=== PATIENT | female | born 1980 ===

== ENCOUNTER 2021-11-17 15:18 | Observation (INO) ==
[2021-11-17] MEDS ORDERED: HYDROmorphone 2 MG/1 ML VIAL IV STA (19:20)
[2021-11-17] MEDS ORDERED: ONDANSETRON 4 MG/2 ML VIAL IV ONE (19:20)
[2021-11-17] MEDS ORDERED: hydrALAZINE 20 MG/1 ML VIAL IV STA (19:20)
[2021-11-17] MEDS ORDERED: DEXTROSE 50% 25 GM/50 ML VIAL IV PRN (20:07)
[2021-11-17] MEDS ORDERED: ALBUTEROL/IPRATROPIUM 3 ML NEB RESP TX PRN (20:07)
[2021-11-17] MEDS ORDERED: GLUCAGON 1 MG VIAL IM PRN ×2 (20:07)
[2021-11-17] MEDS ORDERED: hydrALAZINE 20 MG/1 ML VIAL IV PRN (20:12)
[2021-11-17] MEDS ORDERED: IBUPROFEN 400 MG TABLET PO PRN (20:12)
[2021-11-17] MEDS ORDERED: DEXTROSE 10% 25 GM/250 ML BAG IV PRN (20:19)
[2021-11-17] MEDS ORDERED: glyBURIDE/METFORMIN 5-500 MG TABLET PO SCH (21:00)
[2021-11-17] MEDS: HEPARIN 5,000 UNIT/1 ML VIAL SUBCUT SCH (21:05)
[2021-11-17] MEDS: INSULIN LISPRO 100 UNIT/ML SUBCUT SCH (21:05)
[2021-11-18 03:07] LABS: Basophils # 0.1 10*3/uL (0.0-0.2); Basophils % 0.6 % (0.0-0.8); Eosinophils # 0.1 10*3/uL (0.0-0.87); Eosinophils % 0.8 % (0.00-10.9); Hematocrit 42.4 VOL% (35.7-47.0); Immature Granulocytes % 0.6 %; Immature Granulocytes Absolute 0.08 #; Lymphocytes # 1.2 10*3/uL (1.4-4.0); Lymphocytes % 8.8 % (21.3-54.2); Mean Corpuscular Volume 89.1 FL (87-102); Mean Platelet Volume 12.1 FL (9.6-12.0); Neutrophils % 83.2 % (38.7-73.9); Platelet Count 100 T/CUMM (130-400); Red Blood Count 4.76 MC/CUMM (3.8-5.5); Red Cell Distribution Width 13.5 % (9.3-17.3); White Blood Count 13.3 T/CUMM (4-12)
[2021-11-18 03:30] LABS: Calcium 7.7 MG/DL (8.5-10.1); Potassium 4.6 MMOL/L (3.5-5.1); Thyroid Stimulating Hormone 4.51 uIU/ml (0.358-3.74)
[2021-11-18 03:34] LABS: Albumin 1.9 G/DL (3.4-5.0); Bilirubin,Total 0.4 MG/DL (0.20-1.00); Calcium 7.8 MG/DL (8.5-10.1); Osmolality,Calculated 292.3 MOS/KG (273-304); Potassium 4.6 MMOL/L (3.5-5.1); Total Protein 5.9 G/DL (6.4-8.2)
[2021-11-18] MEDS: HEPARIN 5,000 UNIT/1 ML VIAL SUBCUT SCH (05:45)
[2021-11-18] MEDS: INSULIN LISPRO 100 UNIT/ML SUBCUT SCH (07:50)
[2021-11-18] MEDS ORDERED: PANTOPRAZOLE 40 MG TABLET PO SCH (09:00)
[2021-11-18] MEDS ORDERED: CETIRIZINE 10 MG TABLET PO SCH (09:00)
[2021-11-18] MEDS ORDERED: LOSARTAN 50 MG TABLET PO SCH (09:00)
[2021-11-18] MEDS ORDERED: INSULIN NPH/REGULAR 70/30 100 UNIT/ML SUBCUT SCH (09:00)
[2021-11-18] MEDS ORDERED: METOPROLOL SUCCINATE XL 100 MG TABLET PO SCH (09:00)
[2021-11-18] MEDS ORDERED: amLODIPine 5 MG TABLET PO SCH (09:00)
[2021-11-18] MEDS ORDERED: MONTELUKAST 10 MG TABLET PO SCH (09:00)
[2021-11-18 13:12] VITALS: BP 152/90
[2021-11-18] MEDS ORDERED: metFORMIN 500 MG TABLET PO SCH (21:00)
[2021-11-18] MEDS ORDERED: glyBURIDE 5 MG TABLET PO SCH (21:00)
[2021-11-19] MEDS ORDERED: FUROSEMIDE 20 MG TABLET PO SCH (09:00)
== END 2021-11-18 13:08 | disposition home or self-care (01) ==
LOC: EDBD → EDUNIT# → N.ED 15:18 → N.EDINP 15:18
PROVIDERS: ADMIT Internal Medicine; ATTEND Internal Medicine

== ENCOUNTER 2021-12-20 15:18 | Inpatient (IN) ==
[2021-12-20] MEDS ORDERED: MORPHINE 4 MG/1 ML VIAL IV STA (16:32)
[2021-12-20] MEDS ORDERED: SODIUM CHLORIDE 0.9% 500 ML IV STA (16:32)
[2021-12-20] MEDS ORDERED: ONDANSETRON 4 MG/2 ML VIAL IV STA (16:32)
[2021-12-20] MEDS ORDERED: hydrALAZINE 20 MG/1 ML VIAL IV PRN (16:51)
[2021-12-20 17:18] LABS: Basophils # 0.1 10*3/uL (0.0-0.2); Basophils % 0.9 % (0.0-0.8); Eosinophils # 1.3 10*3/uL (0.0-0.87); Eosinophils % 8.5 % (0.00-10.9); Hematocrit 41.2 VOL% (35.7-47.0); Hemoglobin 13.2 GM/DL (12.0-16.0); Immature Granulocytes % 0.3 %; Immature Granulocytes Absolute 0.04 #; Lymphocytes # 1.4 10*3/uL (1.4-4.0); Lymphocytes % 9.1 % (21.3-54.2); Mean Corpuscular Volume 90.2 FL (87-102); Mean Platelet Volume 10.6 FL (9.6-12.0); Neutrophils % 75.2 % (38.7-73.9); Platelet Count 136 T/CUMM (130-400); Red Blood Count 4.57 MC/CUMM (3.8-5.5); Red Cell Distribution Width 13.3 % (9.3-17.3); White Blood Count 14.9 T/CUMM (4-12)
[2021-12-20] MEDS ORDERED: GLUCAGON 1 MG VIAL IM PRN (17:21)
[2021-12-20] MEDS ORDERED: DOCUSATE SODIUM 100 MG CAPSULE PO PRN (17:21)
[2021-12-20] MEDS ORDERED: DEXTROSE 10% 250 ML BAG IV PRN (17:32)
[2021-12-20 17:33] LABS: Calcium 7.7 MG/DL (8.5-10.1); Osmolality,Calculated 288.1 MOS/KG (273-304); Potassium 3.8 MMOL/L (3.5-5.1)
[2021-12-20] MEDS ORDERED: MAGNESIUM SULF RIDER 2 GM/50 ML PREMIX IV ONE (17:38)
[2021-12-20] MEDS ORDERED: traMADol 50 MG TABLET PO PRN (17:44)
[2021-12-20] MEDS ORDERED: VANCOMYCIN INJ 1,000 MG in SODIUM CHLORIDE 0.9% 250 ML IV SCH (18:00)
[2021-12-20 18:12] LABS: Partial Thromboplastin Time 27.4 SECS (23.8-32.1)
[2021-12-20] MEDS ORDERED: ALBUTEROL/IPRATROPIUM 3 ML NEB RESP TX PRN (19:00)
[2021-12-20] MEDS ORDERED: INFLUENZA VIRUS VACCINE 0.5 ML SYRINGE IM ONE (19:06)
[2021-12-20 19:39] LABS: Hyaline Casts,Urine 3 /LPF (0-3); RBC,Urine 1 /HPF (0-4); Squamous Epithelial Cell,Urine Occasional /HPF (0-10)
[2021-12-20 19:43] LABS: Urine Appearance Clear (Clear); Urine Color Light Yellow (Yellow)
[2021-12-20 19:44] LABS: Urine Specific Gravity 1.025 (1.001-1.035); Urine pH 6.5 (4.5-8.0)
[2021-12-20 19:45] LABS: Bilirubin,Urine Negative (Negative); Blood, Urine Negative (Negative); Glucose,Urine (UA) 250 mg/dL (Negative); Ketones,Urine Negative (Negative); Nitrite,Urine Negative (Negative); Protein,Urine >=300 mg/dL (Negative)
[2021-12-20 19:46] LABS: Urine Urobilinogen < 2.0 eU/dL (<2.0)
[2021-12-20] MEDS: MONTELUKAST 10 MG TABLET PO SCH (20:51)
[2021-12-20] MEDS: INSULIN LISPRO 100 UNIT/ML SUBCUT SCH (20:51)
[2021-12-20] MEDS: hydrALAZINE 25 MG TABLET PO SCH (20:51)
[2021-12-20] MEDS ORDERED: FUROSEMIDE 40 MG TABLET PO SCH (21:00)
[2021-12-20] MEDS ORDERED: VANCOMYCIN INJ 2,500 MG in SODIUM CHLORIDE 0.9% 500 ML IV ONE (21:00)
[2021-12-21 05:35] LABS: Basophils # 0.2 10*3/uL (0.0-0.2); Basophils % 1.1 % (0.0-0.8); Eosinophils # 1.8 10*3/uL (0.0-0.87); Eosinophils % 12.9 % (0.00-10.9); Hematocrit 36.9 VOL% (35.7-47.0); Hemoglobin 11.9 GM/DL (12.0-16.0); Immature Granulocytes % 0.4 %; Immature Granulocytes Absolute 0.06 #; Lymphocytes # 1.8 10*3/uL (1.4-4.0); Lymphocytes % 12.5 % (21.3-54.2); Mean Corpuscular HGB Conc 32.2 GM/DL (32-36); Monocytes % 6.2 % (1.7-12.7); Neutrophils % 66.9 % (38.7-73.9); Platelet Count 141 T/CUMM (130-400); Red Blood Count 4.01 MC/CUMM (3.8-5.5); Red Cell Distribution Width 13.7 % (9.3-17.3); White Blood Count 14.1 T/CUMM (4-12)
[2021-12-21 05:48] LABS: Albumin 1.4 G/DL (3.4-5.0); Bilirubin,Total 0.6 MG/DL (0.20-1.00); Calcium 7.8 MG/DL (8.5-10.1); Osmolality,Calculated 284.5 MOS/KG (273-304); Potassium 3.6 MMOL/L (3.5-5.1); Total Protein 5.8 G/DL (6.4-8.2)
[2021-12-21] MEDS: LEVOTHYROXINE 50 MCG TABLET PO SCH (06:16)
[2021-12-21 06:38] LABS: Eosinophils 15 % (0-10); Lymphocytes 9 % (20-55); Segmented Neutrophils 72 % (50-85); Total Cells Counted 100
[2021-12-21 06:39] LABS: Microcytosis Slight; Platelet Estimate Adequate
[2021-12-21] MEDS ORDERED: BUPIVACAINE MPF 0.25% 30 ML VIAL ONE (09:05)
[2021-12-21] MEDS ORDERED: LIDOCAINE 1%/EPI INJ 20 ML VIAL ONE (09:05)
[2021-12-21] MEDS: LOSARTAN 25 MG TABLET PO SCH (09:16)
[2021-12-21] MEDS: hydrALAZINE 25 MG TABLET PO SCH ×3 (09:16→21:40)
[2021-12-21] MEDS: amLODIPine 5 MG TABLET PO SCH (09:16)
[2021-12-21] MEDS: METOPROLOL SUCCINATE XL 100 MG TABLET PO SCH (09:16)
[2021-12-21] MEDS: INSULIN LISPRO 100 UNIT/ML SUBCUT SCH ×4 (09:17→21:40)
[2021-12-21] MEDS: SODIUM CHLOR 0.9% KCL 20 MEQ 20 MEQ/1,000 ML BAG IV SCH ×3 (09:17→21:45)
[2021-12-21] MEDS ORDERED: DEXMEDETOMIDINE 200 MCG/2 ML VIAL ONE (10:43)
[2021-12-21] MEDS ORDERED: MIDAZOLAM 2 MG/2 ML VIAL ONE ×2 (10:43→10:46)
[2021-12-21] MEDS ORDERED: ETOMIDATE 40 MG/20 ML VIAL IV ONE (10:43)
[2021-12-21] MEDS ORDERED: LIDOCAINE 2% 5 ML VIAL ONE (10:43)
[2021-12-21] MEDS ORDERED: ACETAMINOPHEN INJ 1,000 MG/100 ML VIAL IV ONE (10:47)
[2021-12-21] MEDS ORDERED: KETOROLAC 30 MG/1 ML VIAL ONE (10:47)
[2021-12-21] MEDS ORDERED: DEXAMETHASONE 4 MG/1 ML VIAL ONE (10:48)
[2021-12-21] MEDS ORDERED: ONDANSETRON 4 MG/2 ML VIAL ONE (10:48)
[2021-12-21] MEDS ORDERED: KETAMINE 500 MG/10 ML VIAL ONE (11:14)
[2021-12-21] MEDS ORDERED: propofoL 200 MG/20 ML VIAL IV ONE (11:19)
[2021-12-21] MEDS ORDERED: DEXTROSE 10% 250 ML BAG IV PRN (11:28)
[2021-12-21] MEDS: CETIRIZINE 10 MG TABLET PO SCH (14:03)
[2021-12-21] MEDS: MULTIVITAMIN (CENTRUM) TABLET PO SCH (14:03)
[2021-12-21] MEDS ORDERED: INSULIN NPH/REGULAR 70/30 100 UNIT/ML SUBCUT SCH (17:00)
[2021-12-21] MEDS: MONTELUKAST 10 MG TABLET PO SCH (21:40)
[2021-12-22] MEDS: LEVOTHYROXINE 50 MCG TABLET PO SCH (06:04)
[2021-12-22 06:25] LABS: Basophils # 0.1 10*3/uL (0.0-0.2); Basophils % 0.4 % (0.0-0.8); Eosinophils % 0.1 % (0.00-10.9); Hematocrit 35.8 VOL% (35.7-47.0); Hemoglobin 11.5 GM/DL (12.0-16.0); Immature Granulocytes % 0.7 %; Lymphocytes # 1.2 10*3/uL (1.4-4.0); Lymphocytes % 8.4 % (21.3-54.2); Mean Corpuscular HGB Conc 32.1 GM/DL (32-36); Mean Corpuscular Volume 91.8 FL (87-102); Mean Platelet Volume 10.5 FL (9.6-12.0); Monocytes % 6.8 % (1.7-12.7); Neutrophils % 83.6 % (38.7-73.9); Platelet Count 161 T/CUMM (130-400); Red Cell Distribution Width 13.3 % (9.3-17.3); White Blood Count 14.1 T/CUMM (4-12)
[2021-12-22 06:44] LABS: Alanine Aminotransferase 11 U/L (13-56); Albumin 1.3 G/DL (3.4-5.0); Alkaline Phosphatase 122 U/L (45-117); Aspartate Amino Transferase 14 U/L (0-37); Bilirubin,Total < 0.39 MG/DL (0.20-1.00); Blood Urea Nitrogen 30 MG/DL (7-18); Calcium 7.6 MG/DL (8.5-10.1); Carbon Dioxide 20 MMOL/L (21-32); Estimated Glom Filtration Rate 32 ML/MIN; Glucose 157 MG/DL (74-106); Osmolality,Calculated 281.8 MOS/KG (273-304); Potassium 4.8 MMOL/L (3.5-5.1); Sodium 137 MMOL/L (136-145)
[2021-12-22] MEDS: INSULIN LISPRO 100 UNIT/ML SUBCUT SCH ×4 (07:44→21:22)
[2021-12-22] MEDS ORDERED: ERGOCALCIFEROL 50,000 UNIT CAPSULE PO SCH (09:00)
[2021-12-22] MEDS ORDERED: VANCOMYCIN INJ 2,500 MG in SODIUM CHLORIDE 0.9% 500 ML IV PRN (09:00)
[2021-12-22] MEDS: CETIRIZINE 10 MG TABLET PO SCH (09:55)
[2021-12-22] MEDS: amLODIPine 5 MG TABLET PO SCH (09:55)
[2021-12-22] MEDS: hydrALAZINE 25 MG TABLET PO SCH ×3 (09:55→21:22)
[2021-12-22] MEDS: MULTIVITAMIN (CENTRUM) TABLET PO SCH (09:55)
[2021-12-22] MEDS: METOPROLOL SUCCINATE XL 100 MG TABLET PO SCH (09:55)
[2021-12-22] MEDS: LOSARTAN 25 MG TABLET PO SCH (09:55)
[2021-12-22] MEDS: SODIUM HYPOCHLORITE 0.25% IRRIG 473 ML BOTTLE TOP SCH (12:48)
[2021-12-22] MEDS: cefTRIAXone 2,000 MG in SODIUM CHLORIDE 0.9% 100 ML IV SCH (13:10)
[2021-12-22] MEDS: SODIUM CHLOR 0.9% KCL 20 MEQ 20 MEQ/1,000 ML BAG IV SCH (13:21)
[2021-12-22] MEDS: INSULIN GLARGINE 100 UNIT/ML SUBCUT SCH (21:22)
[2021-12-22] MEDS: MONTELUKAST 10 MG TABLET PO SCH (21:22)
[2021-12-23] MEDS: LEVOTHYROXINE 50 MCG TABLET PO SCH (05:56)
[2021-12-23 08:03] LABS: Basophils # 0.1 10*3/uL (0.0-0.2); Basophils % 1.1 % (0.0-0.8); Eosinophils % 8.9 % (0.00-10.9); Hematocrit 34.2 VOL% (35.7-47.0); Hemoglobin 10.7 GM/DL (12.0-16.0); Immature Granulocytes % 0.5 %; Immature Granulocytes Absolute 0.05 #; Lymphocytes # 2.3 10*3/uL (1.4-4.0); Lymphocytes % 20.8 % (21.3-54.2); Mean Corpuscular HGB Conc 31.3 GM/DL (32-36); Mean Corpuscular Volume 93.7 FL (87-102); Mean Platelet Volume 10.2 FL (9.6-12.0); Monocytes % 7.6 % (1.7-12.7); Neutrophils % 61.1 % (38.7-73.9); Platelet Count 160 T/CUMM (130-400); Red Blood Count 3.65 MC/CUMM (3.8-5.5); Red Cell Distribution Width 13.3 % (9.3-17.3); White Blood Count 10.9 T/CUMM (4-12)
[2021-12-23 08:22] LABS: Calcium 7.4 MG/DL (8.5-10.1); Osmolality,Calculated 290.4 MOS/KG (273-304); Potassium 4.1 MMOL/L (3.5-5.1)
[2021-12-23] MEDS: CETIRIZINE 10 MG TABLET PO SCH (09:53)
[2021-12-23] MEDS: LOSARTAN 25 MG TABLET PO SCH (09:53)
[2021-12-23] MEDS: METOPROLOL SUCCINATE XL 100 MG TABLET PO SCH (09:53)
[2021-12-23] MEDS: amLODIPine 5 MG TABLET PO SCH (09:53)
[2021-12-23] MEDS: MULTIVITAMIN (CENTRUM) TABLET PO SCH (09:53)
[2021-12-23] MEDS: hydrALAZINE 25 MG TABLET PO SCH ×3 (09:53→21:39)
[2021-12-23] MEDS: PANTOPRAZOLE 40 MG TABLET PO SCH (09:53)
[2021-12-23] MEDS: cefTRIAXone 2,000 MG in SODIUM CHLORIDE 0.9% 100 ML IV SCH (09:54)
[2021-12-23] MEDS: INSULIN LISPRO 100 UNIT/ML SUBCUT SCH ×4 (09:54→21:53)
[2021-12-23] MEDS: INSULIN GLARGINE 100 UNIT/ML SUBCUT SCH ×3 (09:54→21:54)
[2021-12-23] MEDS: SODIUM HYPOCHLORITE 0.25% IRRIG 473 ML BOTTLE TOP SCH (09:54)
[2021-12-23] MEDS: MONTELUKAST 10 MG TABLET PO SCH (21:39)
[2021-12-24] MEDS: LEVOTHYROXINE 50 MCG TABLET PO SCH (05:30)
[2021-12-24 06:18] LABS: Basophils # 0.1 10*3/uL (0.0-0.2); Basophils % 1.2 % (0.0-0.8); Eosinophils # 1.9 10*3/uL (0.0-0.87); Eosinophils % 15.6 % (0.00-10.9); Hematocrit 33.6 VOL% (35.7-47.0); Hemoglobin 10.2 GM/DL (12.0-16.0); Immature Granulocytes % 0.4 %; Immature Granulocytes Absolute 0.05 #; Lymphocytes # 1.9 10*3/uL (1.4-4.0); Lymphocytes % 15.5 % (21.3-54.2); Mean Corpuscular HGB Conc 30.4 GM/DL (32-36); Mean Corpuscular Volume 96.3 FL (87-102); Mean Platelet Volume 10.3 FL (9.6-12.0); Monocytes % 8.9 % (1.7-12.7); Neutrophils % 58.4 % (38.7-73.9); Platelet Count 179 T/CUMM (130-400); Red Blood Count 3.49 MC/CUMM (3.8-5.5); Red Cell Distribution Width 13.2 % (9.3-17.3); White Blood Count 12.1 T/CUMM (4-12)
[2021-12-24 06:33] LABS: Calcium 7.9 MG/DL (8.5-10.1); Osmolality,Calculated 289.3 MOS/KG (273-304); Potassium 4.4 MMOL/L (3.5-5.1)
[2021-12-24 06:42] LABS: Eosinophils 14 % (0-10); Hypochromia 1+; Lymphocytes 12 % (20-55); Microcytosis 1+; Platelet Estimate Adequate; Segmented Neutrophils 68 % (50-85); Total Cells Counted 100
[2021-12-24] MEDS ORDERED: propofoL 200 MG/20 ML VIAL IV ONE (09:18)
[2021-12-24] MEDS ORDERED: MIDAZOLAM 2 MG/2 ML VIAL ONE (09:18)
[2021-12-24] MEDS ORDERED: ONDANSETRON 4 MG/2 ML VIAL ONE (09:18)
[2021-12-24] MEDS ORDERED: LIDOCAINE 2% 5 ML VIAL ONE (09:18)
[2021-12-24] MEDS ORDERED: fentaNYL 100 MCG/2 ML VIAL ONE (09:18)
[2021-12-24] MEDS ORDERED: SUCCINYLCHOLINE 200 MG/10 ML VIAL ONE (09:21)
[2021-12-24] MEDS ORDERED: BUPIVACAINE MPF 0.25% 30 ML VIAL ONE (09:33)
[2021-12-24] MEDS ORDERED: LIDOCAINE 1%/EPI INJ 20 ML VIAL ONE (09:34)
[2021-12-24] MEDS: INSULIN LISPRO 100 UNIT/ML SUBCUT SCH ×4 (09:43→22:35)
[2021-12-24] MEDS: cefTRIAXone 2,000 MG in SODIUM CHLORIDE 0.9% 100 ML IV SCH (09:43)
[2021-12-24] MEDS: INSULIN GLARGINE 100 UNIT/ML SUBCUT SCH ×2 (09:44→22:34)
[2021-12-24] MEDS: PANTOPRAZOLE 40 MG TABLET PO SCH (09:44)
[2021-12-24] MEDS: amLODIPine 5 MG TABLET PO SCH (09:44)
[2021-12-24] MEDS: CETIRIZINE 10 MG TABLET PO SCH (09:44)
[2021-12-24] MEDS: hydrALAZINE 25 MG TABLET PO SCH ×3 (09:44→21:19)
[2021-12-24] MEDS: METOPROLOL SUCCINATE XL 100 MG TABLET PO SCH (09:44)
[2021-12-24] MEDS: MULTIVITAMIN (CENTRUM) TABLET PO SCH (09:45)
[2021-12-24] MEDS: SODIUM HYPOCHLORITE 0.25% IRRIG 473 ML BOTTLE TOP SCH (09:45)
[2021-12-24] MEDS: LOSARTAN 25 MG TABLET PO SCH (09:45)
[2021-12-24] MEDS ORDERED: LACTATED RINGERS 1,000 ML IV SCH (10:00)
[2021-12-24] MEDS ORDERED: ePHEDrine 50 MG/ML VIAL ONE (10:44)
[2021-12-24] MEDS ORDERED: AMPICILLIN/SULBACTAM 3,000 MG in SODIUM CHLORIDE 0.9% 100 ML IV SCH (11:30)
[2021-12-24] MEDS: HYDROmorphone 1 MG/1 ML SYRINGE IV PRN ×2 (11:40→11:52)
[2021-12-24] MEDS ORDERED: HYDROmorphone 1 MG/1 ML SYRINGE ONE (11:42)
[2021-12-24 11:47] LABS: Bacteria,Urine Occasional /HPF (Few); RBC,Urine <1 /HPF (0-4); Urine Appearance Clear (Clear); Urine Color Yellow (Yellow)
[2021-12-24 11:48] LABS: Bilirubin,Urine Negative (Negative); Blood, Urine Small mg/dL (Negative); Glucose,Urine (UA) 1+ mg/dL (Negative); Ketones,Urine Negative (Negative); Nitrite,Urine Negative (Negative); Protein,Urine 3+ mg/dL (Negative); Urine Urobilinogen 0.2 eU/dL (<2.0)
[2021-12-24] MEDS: PIPERACILLIN/TAZOBACTAM 3,375 MG in SODIUM CHLORIDE 0.9% 100 ML IV SCH ×2 (12:39→21:19)
[2021-12-24] MEDS: CLINDAMYCIN INJ 900 MG/50 ML PREMIX IV SCH (16:42)
[2021-12-24] MEDS: ONDANSETRON 4 MG/2 ML VIAL IV PRN (20:04)
[2021-12-24] MEDS: ACETAMINOPHEN 325 MG TABLET PO PRN (20:05)
[2021-12-24] MEDS: MONTELUKAST 10 MG TABLET PO SCH (21:19)
[2021-12-25] MEDS: CLINDAMYCIN INJ 900 MG/50 ML PREMIX IV SCH ×3 (01:32→17:16)
[2021-12-25] MEDS: PIPERACILLIN/TAZOBACTAM 3,375 MG in SODIUM CHLORIDE 0.9% 100 ML IV SCH ×3 (04:34→21:51)
[2021-12-25] MEDS: LEVOTHYROXINE 50 MCG TABLET PO SCH (05:46)
[2021-12-25 06:55] LABS: Basophils # 0.1 10*3/uL (0.0-0.2); Basophils % 0.8 % (0.0-0.8); Eosinophils # 1.9 10*3/uL (0.0-0.87); Eosinophils % 15.8 % (0.00-10.9); Hematocrit 33.8 VOL% (35.7-47.0); Hemoglobin 10.6 GM/DL (12.0-16.0); Immature Granulocytes % 0.4 %; Immature Granulocytes Absolute 0.05 #; Lymphocytes # 1.5 10*3/uL (1.4-4.0); Lymphocytes % 12.4 % (21.3-54.2); Mean Corpuscular HGB Conc 31.4 GM/DL (32-36); Mean Corpuscular Volume 93.1 FL (87-102); Mean Platelet Volume 9.9 FL (9.6-12.0); Monocytes % 8.7 % (1.7-12.7); Neutrophils % 61.9 % (38.7-73.9); Platelet Count 179 T/CUMM (130-400); Red Blood Count 3.63 MC/CUMM (3.8-5.5); White Blood Count 11.8 T/CUMM (4-12)
[2021-12-25 07:14] LABS: Eosinophils 17 % (0-10); Hypochromia Slight; Lymphocytes 12 % (20-55); Microcytosis Slight; Platelet Estimate Adequate; Segmented Neutrophils 61 % (50-85); Total Cells Counted 100
[2021-12-25 07:17] LABS: Calcium 7.6 MG/DL (8.5-10.1); Osmolality,Calculated 288.3 MOS/KG (273-304); Potassium 4.7 MMOL/L (3.5-5.1)
[2021-12-25] MEDS: INSULIN LISPRO 100 UNIT/ML SUBCUT SCH ×4 (08:07→22:42)
[2021-12-25] MEDS: MULTIVITAMIN (CENTRUM) TABLET PO SCH (10:24)
[2021-12-25] MEDS: LOSARTAN 25 MG TABLET PO SCH (10:24)
[2021-12-25] MEDS: PANTOPRAZOLE 40 MG TABLET PO SCH (10:25)
[2021-12-25] MEDS: amLODIPine 5 MG TABLET PO SCH ×2 (10:25→17:16)
[2021-12-25] MEDS: METOPROLOL SUCCINATE XL 100 MG TABLET PO SCH (10:25)
[2021-12-25] MEDS: CETIRIZINE 10 MG TABLET PO SCH (10:25)
[2021-12-25] MEDS: INSULIN GLARGINE 100 UNIT/ML SUBCUT SCH ×2 (10:25→22:41)
[2021-12-25] MEDS: hydrALAZINE 25 MG TABLET PO SCH ×3 (10:25→21:50)
[2021-12-25] MEDS: DOCUSATE SODIUM 100 MG CAPSULE PO SCH ×2 (10:42→21:50)
[2021-12-25] MEDS: ACETAMINOPHEN 325 MG TABLET PO PRN (12:39)
[2021-12-25] MEDS: SODIUM HYPOCHLORITE 0.25% IRRIG 473 ML BOTTLE TOP SCH (13:55)
[2021-12-25] MEDS ORDERED: HYDROmorphone 2 MG/1 ML VIAL IV ONE (14:00)
[2021-12-25] MEDS: ONDANSETRON 4 MG/2 ML VIAL IV PRN (14:59)
[2021-12-25] MEDS: MONTELUKAST 10 MG TABLET PO SCH (21:50)
[2021-12-26] MEDS: CLINDAMYCIN INJ 900 MG/50 ML PREMIX IV SCH ×3 (01:10→17:09)
[2021-12-26] MEDS: PIPERACILLIN/TAZOBACTAM 3,375 MG in SODIUM CHLORIDE 0.9% 100 ML IV SCH ×3 (04:09→20:36)
[2021-12-26] MEDS: LEVOTHYROXINE 50 MCG TABLET PO SCH (05:42)
[2021-12-26 05:46] LABS: Basophils # 0.1 10*3/uL (0.0-0.2); Basophils % 0.7 % (0.0-0.8); Eosinophils % 19.4 % (0.00-10.9); Hematocrit 32.6 VOL% (35.7-47.0); Hemoglobin 10.2 GM/DL (12.0-16.0); Lymphocytes # 1.6 10*3/uL (1.4-4.0); Lymphocytes % 15.4 % (21.3-54.2); Mean Corpuscular HGB Conc 31.3 GM/DL (32-36); Mean Corpuscular Volume 93.1 FL (87-102); Mean Platelet Volume 9.7 FL (9.6-12.0); Monocytes % 8.8 % (1.7-12.7); Neutrophils % 54.7 % (38.7-73.9); Platelet Count 180 T/CUMM (130-400); White Blood Count 10.3 T/CUMM (4-12)
[2021-12-26 06:05] LABS: Osmolality,Calculated 283.7 MOS/KG (273-304); Potassium 4.7 MMOL/L (3.5-5.1)
[2021-12-26 06:19] LABS: Eosinophils 20 % (0-10); Hypochromia Slight; Lymphocytes 14 % (20-55); Microcytosis 1+; Platelet Estimate Adequate; Segmented Neutrophils 58 % (50-85); Total Cells Counted 100
[2021-12-26] MEDS ORDERED: MAGNESIUM SULF RIDER 2 GM/50 ML PREMIX IV ONE (08:00)
[2021-12-26] MEDS: INSULIN LISPRO 100 UNIT/ML SUBCUT SCH ×4 (08:07→20:35)
[2021-12-26] MEDS: MULTIVITAMIN (CENTRUM) TABLET PO SCH (09:21)
[2021-12-26] MEDS: INSULIN GLARGINE 100 UNIT/ML SUBCUT SCH ×2 (09:21→20:36)
[2021-12-26] MEDS: METOPROLOL SUCCINATE XL 100 MG TABLET PO SCH (09:21)
[2021-12-26] MEDS: LOSARTAN 25 MG TABLET PO SCH (09:21)
[2021-12-26] MEDS: amLODIPine 5 MG TABLET PO SCH (09:22)
[2021-12-26] MEDS: DOCUSATE SODIUM 100 MG CAPSULE PO SCH ×2 (09:22→20:36)
[2021-12-26] MEDS: PANTOPRAZOLE 40 MG TABLET PO SCH (09:22)
[2021-12-26] MEDS: hydrALAZINE 25 MG TABLET PO SCH ×3 (09:22→20:36)
[2021-12-26] MEDS: SODIUM HYPOCHLORITE 0.25% IRRIG 473 ML BOTTLE TOP SCH (09:22)
[2021-12-26] MEDS: CETIRIZINE 10 MG TABLET PO SCH (09:22)
[2021-12-26] MEDS: MONTELUKAST 10 MG TABLET PO SCH (20:36)
[2021-12-27] MEDS: CLINDAMYCIN INJ 900 MG/50 ML PREMIX IV SCH ×4 (00:04→23:42)
[2021-12-27] MEDS: PIPERACILLIN/TAZOBACTAM 3,375 MG in SODIUM CHLORIDE 0.9% 100 ML IV SCH ×3 (03:59→20:59)
[2021-12-27 05:19] LABS: Basophils # 0.1 10*3/uL (0.0-0.2); Basophils % 0.7 % (0.0-0.8); Eosinophils # 1.7 10*3/uL (0.0-0.87); Eosinophils % 19.3 % (0.00-10.9); Hematocrit 31.3 VOL% (35.7-47.0); Hemoglobin 9.9 GM/DL (12.0-16.0); Immature Granulocytes % 0.9 %; Immature Granulocytes Absolute 0.08 #; Lymphocytes # 1.6 10*3/uL (1.4-4.0); Lymphocytes % 18.3 % (21.3-54.2); Mean Corpuscular HGB Conc 31.6 GM/DL (32-36); Mean Corpuscular Volume 95.1 FL (87-102); Mean Platelet Volume 9.9 FL (9.6-12.0); Monocytes % 8.8 % (1.7-12.7); Platelet Count 173 T/CUMM (130-400); Red Blood Count 3.29 MC/CUMM (3.8-5.5); White Blood Count 8.7 T/CUMM (4-12)
[2021-12-27 05:29] LABS: Calcium 7.7 MG/DL (8.5-10.1); Osmolality,Calculated 285.4 MOS/KG (273-304); Potassium 4.4 MMOL/L (3.5-5.1)
[2021-12-27 05:49] LABS: Eosinophils 21 % (0-10); Lymphocytes 25 % (20-55); Polychromasia Slight; Segmented Neutrophils 49 % (50-85); Total Cells Counted 100
[2021-12-27 05:50] LABS: Microcytosis 1+
[2021-12-27] MEDS: LEVOTHYROXINE 50 MCG TABLET PO SCH (05:57)
[2021-12-27] MEDS: INSULIN LISPRO 100 UNIT/ML SUBCUT SCH ×4 (08:13→21:27)
[2021-12-27] MEDS: INSULIN GLARGINE 100 UNIT/ML SUBCUT SCH (08:31)
[2021-12-27] MEDS: LOSARTAN 25 MG TABLET PO SCH (08:31)
[2021-12-27] MEDS: hydrALAZINE 25 MG TABLET PO SCH ×3 (08:31→20:59)
[2021-12-27] MEDS: PANTOPRAZOLE 40 MG TABLET PO SCH (08:31)
[2021-12-27] MEDS: CETIRIZINE 10 MG TABLET PO SCH (08:31)
[2021-12-27] MEDS: METOPROLOL SUCCINATE XL 100 MG TABLET PO SCH (08:31)
[2021-12-27] MEDS: DOCUSATE SODIUM 100 MG CAPSULE PO SCH ×2 (08:31→20:59)
[2021-12-27] MEDS: amLODIPine 5 MG TABLET PO SCH (08:31)
[2021-12-27] MEDS: MULTIVITAMIN (CENTRUM) TABLET PO SCH (08:31)
[2021-12-27] MEDS: SODIUM HYPOCHLORITE 0.25% IRRIG 473 ML BOTTLE TOP SCH (08:32)
[2021-12-27] MEDS ORDERED: FUROSEMIDE 40 MG/4 ML VIAL IV ONE (09:40)
[2021-12-27] MEDS ORDERED: LACTULOSE 20 GM/30 ML UDCUP PO PRN (11:46)
[2021-12-27] MEDS ORDERED: LACTULOSE 20 GM/30 ML UDCUP PO ONE (11:46)
[2021-12-27] MEDS: POLYETHYLENE GLYCOL POWDER 17 GM PACK PO SCH (12:24)
[2021-12-27] MEDS ORDERED: ALBUTEROL 2.5 MG/3 ML NEB RESP TX PRN (15:00)
[2021-12-27] MEDS ORDERED: MAGNESIUM CITRATE 300 ML BOTTLE PO ONE (15:12)
[2021-12-27] MEDS ORDERED: INSULIN NPH/REGULAR 70/30 100 UNIT/ML SUBCUT SCH (17:00)
[2021-12-27] MEDS ORDERED: ALBUTEROL/IPRATROPIUM 3 ML NEB RESP TX PRN (19:00)
[2021-12-27] MEDS: MONTELUKAST 10 MG TABLET PO SCH (20:59)
[2021-12-28] MEDS: PIPERACILLIN/TAZOBACTAM 3,375 MG in SODIUM CHLORIDE 0.9% 100 ML IV SCH (04:04)
[2021-12-28 05:14] LABS: Basophils # 0.1 10*3/uL (0.0-0.2); Basophils % 0.6 % (0.0-0.8); Eosinophils # 0.9 10*3/uL (0.0-0.87); Eosinophils % 8.3 % (0.00-10.9); Hematocrit 30.6 VOL% (35.7-47.0); Hemoglobin 9.8 GM/DL (12.0-16.0); Immature Granulocytes % 0.9 %; Lymphocytes # 1.4 10*3/uL (1.4-4.0); Lymphocytes % 12.5 % (21.3-54.2); Mean Corpuscular Volume 93.3 FL (87-102); Mean Platelet Volume 9.9 FL (9.6-12.0); Monocytes % 6.9 % (1.7-12.7); Neutrophils % 70.8 % (38.7-73.9); Platelet Count 204 T/CUMM (130-400); Red Blood Count 3.28 MC/CUMM (3.8-5.5); Red Cell Distribution Width 12.8 % (9.3-17.3); White Blood Count 10.8 T/CUMM (4-12)
[2021-12-28] MEDS: LEVOTHYROXINE 50 MCG TABLET PO SCH (05:33)
[2021-12-28 05:45] LABS: Alanine Aminotransferase 17 U/L (13-56); Albumin 1.4 G/DL (3.4-5.0); Alkaline Phosphatase 110 U/L (45-117); Aspartate Amino Transferase 24 U/L (0-37); Bilirubin,Total < 0.39 MG/DL (0.20-1.00); Blood Urea Nitrogen 31 MG/DL (7-18); Calcium 8.4 MG/DL (8.5-10.1); Carbon Dioxide 24 MMOL/L (21-32); Estimated Glom Filtration Rate 34 ML/MIN; Glucose 90 MG/DL (74-106); Osmolality,Calculated 289.1 MOS/KG (273-304); Potassium 4.5 MMOL/L (3.5-5.1); Sodium 142 MMOL/L (136-145); Total Protein 6.1 G/DL (6.4-8.2)
[2021-12-28] MEDS: INSULIN LISPRO 100 UNIT/ML SUBCUT SCH ×2 (07:40→11:41)
[2021-12-28] MEDS ORDERED: INSULIN NPH/REGULAR 70/30 100 UNIT/ML SUBCUT SCH (08:00)
[2021-12-28] MEDS: METOPROLOL SUCCINATE XL 100 MG TABLET PO SCH (08:21)
[2021-12-28] MEDS: DOCUSATE SODIUM 100 MG CAPSULE PO SCH (08:21)
[2021-12-28] MEDS: POLYETHYLENE GLYCOL POWDER 17 GM PACK PO SCH (08:21)
[2021-12-28] MEDS: LOSARTAN 25 MG TABLET PO SCH (08:21)
[2021-12-28] MEDS: hydrALAZINE 25 MG TABLET PO SCH (08:21)
[2021-12-28] MEDS: PANTOPRAZOLE 40 MG TABLET PO SCH (08:21)
[2021-12-28] MEDS: MULTIVITAMIN (CENTRUM) TABLET PO SCH (08:21)
[2021-12-28] MEDS: SODIUM HYPOCHLORITE 0.25% IRRIG 473 ML BOTTLE TOP SCH (08:21)
[2021-12-28] MEDS: amLODIPine 5 MG TABLET PO SCH (08:21)
[2021-12-28] MEDS: CETIRIZINE 10 MG TABLET PO SCH (08:21)
[2021-12-28] MEDS ORDERED: LEVOFLOXACIN 500 MG TABLET PO ONE (09:00)
[2021-12-28 12:01] VITALS: BP 154/92
[2021-12-29] MEDS ORDERED: LEVOFLOXACIN 250 MG TABLET PO SCH (09:00)
== END 2021-12-28 13:44 | disposition home or self-care (01) | DRG 570 ==
LOC: N.ED 15:18 → N.EDINP 15:18 → SUATTDRO 17:53 → N.3E 18:16 → SUATTDRO 12-21 10:44
PROVIDERS: ADMIT Internal Medicine; ATTEND Internal Medicine

== ENCOUNTER 2022-10-21 17:05 | Inpatient (IN) ==
[2022-10-21] MEDS ORDERED: LACTULOSE 20 GM/30 ML UDCUP PO PRN (19:32)
[2022-10-21] MEDS ORDERED: hydrALAZINE 20 MG/1 ML VIAL IV PRN (19:32)
[2022-10-21] MEDS ORDERED: GLUCAGON 1 MG VIAL IM PRN (19:32)
[2022-10-21] MEDS ORDERED: DOCUSATE SODIUM 100 MG CAPSULE PO PRN (19:32)
[2022-10-21] MEDS ORDERED: DEXTROSE 10% 250 ML BAG IV PRN (19:46)
[2022-10-21] MEDS ORDERED: carvediloL 12.5 MG TABLET PO SCH (21:00)
[2022-10-21] MEDS: HEPARIN 5,000 UNIT/1 ML VIAL SUBCUT SCH (21:06)
[2022-10-21] MEDS: INSULIN REGULAR 100 UNIT/ML SUBCUT SCH (22:38)
[2022-10-21] MEDS: MONTELUKAST 10 MG TABLET PO SCH (22:55)
[2022-10-21] MEDS: hydrALAZINE 25 MG TABLET PO SCH (22:56)
[2022-10-22] MEDS: ALBUTEROL/IPRATROPIUM 3 ML NEB RESP TX SCH ×4 (00:30→19:24)
[2022-10-22 04:08] LABS: ABG Base Excess -6.2 MMOL/L (-2.5-2.5); ABG HCO3 19.3 MMOL/L (20-26); ABG Oxygen Saturation 98.2 % (95-100); ABG PCO2 48.4 MM HG (35-48); ABG PH 7.249 (7.35-7.45); ABG TCO2 19.5 MMOL/L (23-27)
[2022-10-22 05:36] LABS: Basophils # 0.1 10*3/uL (0.0-0.2); Basophils % 1.4 % (0.0-0.8); Eosinophils # 1.2 10*3/uL (0.0-0.87); Eosinophils % 15.8 % (0.00-10.9); Hematocrit 32.8 VOL% (35.7-47.0); Hemoglobin 10.3 GM/DL (12.0-16.0); Immature Granulocytes % 0.3 %; Immature Granulocytes Absolute 0.02 #; Lymphocytes # 1.7 10*3/uL (1.4-4.0); Lymphocytes % 22.7 % (21.3-54.2); Mean Corpuscular HGB Conc 31.4 GM/DL (32-36); Mean Corpuscular Volume 95.9 FL (87-102); Mean Platelet Volume 11.5 FL (9.6-12.0); Monocytes # 0.6 10*3/uL (0.11-0.8); Monocytes % 7.6 % (1.7-12.7); Neutrophils % 52.2 % (38.7-73.9); Platelet Count 110 T/CUMM (130-400); Red Blood Count 3.42 MC/CUMM (3.8-5.5); Red Cell Distribution Width 14.2 % (9.3-17.3); White Blood Count 7.3 T/CUMM (4-12)
[2022-10-22 06:00] LABS: Eosinophils 16 % (0-10); Lymphocytes 16 % (20-55); Total Cells Counted 100
[2022-10-22 06:02] LABS: Microcytosis Slight
[2022-10-22 06:02] LABS: Parathyroid Hormone Intact 326.2 PG/ML (18.4-80.1)
[2022-10-22 06:03] LABS: Alanine Aminotransferase 21 U/L (13-56); Alkaline Phosphatase 91 U/L (45-117); Aspartate Amino Transferase 23 U/L (0-37); Bilirubin,Total < 0.39 MG/DL (0.20-1.00); Blood Urea Nitrogen 39 MG/DL (7-18); Calcium 7.8 MG/DL (8.5-10.1); Carbon Dioxide 23 MMOL/L (21-32); Chloride 118 MMOL/L (98-107); Glucose 110 MG/DL (74-106); Osmolality,Calculated 295.8 MOS/KG (273-304); Platelet Estimate Decreased; Potassium 4.4 MMOL/L (3.5-5.1); Sodium 144 MMOL/L (136-145); Total Protein 5.4 G/DL (6.4-8.2)
[2022-10-22 06:21] LABS: Amorphous Crystals,Urine Few /HPF (Few); Bacteria,Urine Many /HPF (Few); Bilirubin,Urine Negative (Negative); Blood, Urine Small mg/dL (Negative); Glucose,Urine (UA) 250 mg/dL (Negative); Hyaline Casts,Urine 4 /LPF (0-3); Ketones,Urine Negative (Negative); Mucus,Urine Occasional /LPF (Occasional); Nitrite,Urine Negative (Negative); Protein,Urine >=300 mg/dL (Negative); Squamous Epithelial Cell,Urine Occasional /HPF (0-10); Urine Appearance Clear (Clear); Urine Color Yellow (Yellow); Urine Specific Gravity 1.025 (1.001-1.035); Urine Urobilinogen 0.2 eU/dL (<2.0)
[2022-10-22 06:39] LABS: Protein/Creatinine Ratio,Urine 9.5 RATIO
[2022-10-22] MEDS ORDERED: MAGNESIUM SULF RIDER 2 GM/50 ML PREMIX IV ONE (07:18)
[2022-10-22] MEDS ORDERED: ALBUTEROL 2.5 MG/3 ML NEB RESP TX PRN (08:20)
[2022-10-22] MEDS ORDERED: amLODIPine 5 MG TABLET PO SCH (09:00)
[2022-10-22] MEDS ORDERED: LEVOTHYROXINE 50 MCG TABLET PO SCH (09:00)
[2022-10-22] MEDS ORDERED: INSULIN NPH/REG 70/30 100 UNIT/ML SUBCUT SCH ×2 (09:00→17:00)
[2022-10-22] MEDS: INSULIN REGULAR 100 UNIT/ML SUBCUT SCH ×4 (09:05→22:32)
[2022-10-22] MEDS: FUROSEMIDE 40 MG/4 ML VIAL IV SCH ×2 (09:53→15:06)
[2022-10-22] MEDS: HEPARIN 5,000 UNIT/1 ML VIAL SUBCUT SCH ×2 (09:53→22:27)
[2022-10-22] MEDS: hydrALAZINE 25 MG TABLET PO SCH ×3 (09:53→22:27)
[2022-10-22] MEDS: MULTIVITAMIN (CENTRUM) TABLET PO SCH (09:54)
[2022-10-22] MEDS: CHOLECALCIFEROL 5,000 UNIT TABLET PO SCH (09:54)
[2022-10-22] MEDS: PANTOPRAZOLE 40 MG TABLET PO SCH (09:54)
[2022-10-22] MEDS: TORSEMIDE 20 MG TABLET PO SCH (09:54)
[2022-10-22] MEDS: MOMETASONE 220 MCG/PUFF INHALER 14 DOSE INH SCH ×2 (09:59→22:25)
[2022-10-22] MEDS: SEVELAMER CARBONATE 800 MG TABLET PO SCH ×2 (12:09→16:01)
[2022-10-22] MEDS: carvediloL 6.25 MG TABLET PO SCH (16:02)
[2022-10-22] MEDS: MONTELUKAST 10 MG TABLET PO SCH (22:27)
[2022-10-22] MEDS: DOCUSATE SODIUM 100 MG CAPSULE PO SCH (22:27)
[2022-10-23] MEDS: ALBUTEROL/IPRATROPIUM 3 ML NEB RESP TX SCH ×4 (01:39→20:15)
[2022-10-23 04:31] LABS: Basophils # 0.1 10*3/uL (0.0-0.2); Basophils % 1.2 % (0.0-0.8); Eosinophils # 1.1 10*3/uL (0.0-0.87); Eosinophils % 14.7 % (0.00-10.9); Hematocrit 33.1 VOL% (35.7-47.0); Hemoglobin 10.3 GM/DL (12.0-16.0); Immature Granulocytes % 0.3 %; Immature Granulocytes Absolute 0.02 #; Lymphocytes # 1.6 10*3/uL (1.4-4.0); Lymphocytes % 21.2 % (21.3-54.2); Mean Corpuscular HGB Conc 31.1 GM/DL (32-36); Mean Corpuscular Volume 96.8 FL (87-102); Mean Platelet Volume 10.9 FL (9.6-12.0); Monocytes # 0.6 10*3/uL (0.11-0.8); Monocytes % 7.8 % (1.7-12.7); Neutrophils % 54.8 % (38.7-73.9); Platelet Count 110 T/CUMM (130-400); Red Blood Count 3.42 MC/CUMM (3.8-5.5); Red Cell Distribution Width 13.9 % (9.3-17.3); White Blood Count 7.5 T/CUMM (4-12)
[2022-10-23 05:01] LABS: Alanine Aminotransferase 23 U/L (13-56); Albumin 2.1 G/DL (3.4-5.0); Alkaline Phosphatase 106 U/L (45-117); Aspartate Amino Transferase 27 U/L (0-37); Bilirubin,Total < 0.39 MG/DL (0.20-1.00); Blood Urea Nitrogen 40 MG/DL (7-18); Calcium 7.6 MG/DL (8.5-10.1); Carbon Dioxide 24 MMOL/L (21-32); Chloride 116 MMOL/L (98-107); Glucose 137 MG/DL (74-106); Osmolality,Calculated 301.6 MOS/KG (273-304); Sodium 146 MMOL/L (136-145); Total Protein 5.5 G/DL (6.4-8.2)
[2022-10-23 05:02] LABS: Eosinophils 19 % (0-10); Lymphocytes 22 % (20-55); Microcytosis Slight; Platelet Estimate Adequate; Total Cells Counted 100
[2022-10-23 05:04] LABS: Folate 11.39 NG/ML (5.38-24.0)
[2022-10-23 05:18] LABS: % Iron Saturation 22.4 % (18-50); Ferritin 26.6 ng/mL (8-252)
[2022-10-23] MEDS: LEVOTHYROXINE 100 MCG TABLET PO SCH (05:43)
[2022-10-23 07:40] LABS: INR 0.9; PT Patient Result 10.2 SECS (10.1-12.1)
[2022-10-23] MEDS: carvediloL 6.25 MG TABLET PO SCH ×2 (08:02→16:04)
[2022-10-23] MEDS: INSULIN REGULAR 100 UNIT/ML SUBCUT SCH ×3 (08:02→16:04)
[2022-10-23] MEDS: FUROSEMIDE 40 MG/4 ML VIAL IV SCH ×2 (08:02→16:03)
[2022-10-23] MEDS: SEVELAMER CARBONATE 800 MG TABLET PO SCH ×3 (08:03→16:04)
[2022-10-23] MEDS: MOMETASONE 220 MCG/PUFF INHALER 14 DOSE INH SCH ×3 (08:57→21:03)
[2022-10-23] MEDS: hydrALAZINE 25 MG TABLET PO SCH ×3 (08:57→21:03)
[2022-10-23] MEDS: MULTIVITAMIN (CENTRUM) TABLET PO SCH (08:57)
[2022-10-23] MEDS: DOCUSATE SODIUM 100 MG CAPSULE PO SCH ×2 (08:58→21:03)
[2022-10-23] MEDS: CHOLECALCIFEROL 5,000 UNIT TABLET PO SCH (08:58)
[2022-10-23] MEDS: PANTOPRAZOLE 40 MG TABLET PO SCH (08:58)
[2022-10-23] MEDS ORDERED: HYDROmorphone 1 MG/1 ML SYRINGE IV ONE (09:48)
[2022-10-23] MEDS: TORSEMIDE 20 MG TABLET PO SCH (10:29)
[2022-10-23] MEDS: ONDANSETRON 4 MG/2 ML VIAL IV PRN (10:30)
[2022-10-23] MEDS ORDERED: PERMETHRIN 1% LOTION 59 ML BOTTLE TOP ONE (14:00)
[2022-10-23] MEDS: PERMETHRIN 5% CREAM 60 GM TUBE TOP ONE ×2 (14:20→14:47)
[2022-10-23 17:45] LABS: Protein/Creatinine Ratio,Urine 12.1 RATIO
[2022-10-23 19:36] LABS: Antinuclear Ab, S 5.1 U
[2022-10-23] MEDS ORDERED: PERMETHRIN 5% CREAM 60 GM TUBE TOP SCH (21:00)
[2022-10-23] MEDS: HEPARIN 5,000 UNIT/1 ML VIAL SUBCUT SCH (21:03)
[2022-10-23] MEDS: PREGABALIN 75 MG CAPSULE PO SCH (21:04)
[2022-10-23] MEDS: MONTELUKAST 10 MG TABLET PO SCH (21:04)
[2022-10-23] MEDS: traMADol 50 MG TABLET PO PRN (21:04)
[2022-10-24] MEDS: INSULIN REGULAR 100 UNIT/ML SUBCUT SCH ×5 (00:40→20:35)
[2022-10-24] MEDS: ALBUTEROL/IPRATROPIUM 3 ML NEB RESP TX SCH ×4 (00:42→19:02)
[2022-10-24] MEDS: LEVOTHYROXINE 100 MCG TABLET PO SCH (05:37)
[2022-10-24 05:45] LABS: Basophils # 0.1 10*3/uL (0.0-0.2); Basophils % 1.5 % (0.0-0.8); Eosinophils # 1.1 10*3/uL (0.0-0.87); Eosinophils % 15.2 % (0.00-10.9); Immature Granulocytes % 0.4 %; Immature Granulocytes Absolute 0.03 #; Lymphocytes % 26.2 % (21.3-54.2); Mean Corpuscular HGB Conc 31.3 GM/DL (32-36); Mean Corpuscular Volume 96.7 FL (87-102); Mean Platelet Volume 11.3 FL (9.6-12.0); Monocytes # 0.6 10*3/uL (0.11-0.8); Monocytes % 8.1 % (1.7-12.7); Neutrophils % 48.6 % (38.7-73.9); Platelet Count 111 T/CUMM (130-400); Red Blood Count 3.31 MC/CUMM (3.8-5.5); White Blood Count 7.4 T/CUMM (4-12)
[2022-10-24 05:57] LABS: Alanine Aminotransferase 23 U/L (13-56); Albumin 1.9 G/DL (3.4-5.0); Alkaline Phosphatase 88 U/L (45-117); Aspartate Amino Transferase 24 U/L (0-37); Bilirubin,Total < 0.39 MG/DL (0.20-1.00); Blood Urea Nitrogen 43 MG/DL (7-18); Calcium 7.2 MG/DL (8.5-10.1); Carbon Dioxide 24 MMOL/L (21-32); Chloride 117 MMOL/L (98-107); Glucose 116 MG/DL (74-106); Osmolality,Calculated 299.7 MOS/KG (273-304); Potassium 4.4 MMOL/L (3.5-5.1); Sodium 145 MMOL/L (136-145); Total Protein 5.4 G/DL (6.4-8.2)
[2022-10-24 08:19] LABS: Anisocytosis 1+; Eosinophils 17 % (0-10); Lymphocytes 28 % (20-55); Macrocytosis Slight; Platelet Estimate Adequate; Total Cells Counted 100
[2022-10-24] MEDS: carvediloL 6.25 MG TABLET PO SCH ×2 (08:26→16:03)
[2022-10-24] MEDS: FUROSEMIDE 40 MG/4 ML VIAL IV SCH ×2 (08:26→16:03)
[2022-10-24] MEDS: SEVELAMER CARBONATE 800 MG TABLET PO SCH ×3 (08:26→16:03)
[2022-10-24] MEDS: HEPARIN 5,000 UNIT/1 ML VIAL SUBCUT SCH ×2 (08:53→20:31)
[2022-10-24] MEDS: traMADol 50 MG TABLET PO PRN (08:54)
[2022-10-24] MEDS: MULTIVITAMIN (CENTRUM) TABLET PO SCH (08:55)
[2022-10-24] MEDS: MOMETASONE 220 MCG/PUFF INHALER 14 DOSE INH SCH ×2 (08:55→20:31)
[2022-10-24] MEDS: hydrALAZINE 25 MG TABLET PO SCH ×3 (08:55→20:31)
[2022-10-24] MEDS: DOCUSATE SODIUM 100 MG CAPSULE PO SCH ×2 (08:55→20:31)
[2022-10-24] MEDS: TORSEMIDE 20 MG TABLET PO SCH (08:55)
[2022-10-24] MEDS: PREGABALIN 75 MG CAPSULE PO SCH ×2 (08:55→20:35)
[2022-10-24] MEDS: PANTOPRAZOLE 40 MG TABLET PO SCH (08:56)
[2022-10-24] MEDS: calcitrioL 0.25 MCG CAPSULE PO SCH (08:56)
[2022-10-24] MEDS ORDERED: allopurinoL 300 MG TABLET PO SCH (09:00)
[2022-10-24] MEDS ORDERED: CAMPHOR/MENTHOL LOTION 222 ML BOTTLE TOP PRN (11:35)
[2022-10-24] MEDS ORDERED: hydrOXYzine HCL 25 MG TABLET PO PRN (11:36)
[2022-10-24] MEDS ORDERED: ALBUTEROL INHALER 18 GM INH PRN (16:01)
[2022-10-24] MEDS: MONTELUKAST 10 MG TABLET PO SCH (20:35)
[2022-10-25] MEDS: ALBUTEROL/IPRATROPIUM 3 ML NEB RESP TX SCH ×4 (00:49→18:52)
[2022-10-25] MEDS: LEVOTHYROXINE 100 MCG TABLET PO SCH (05:41)
[2022-10-25 06:15] LABS: Basophils # 0.1 10*3/uL (0.0-0.2); Basophils % 1.1 % (0.0-0.8); Eosinophils # 1.3 10*3/uL (0.0-0.87); Eosinophils % 18.5 % (0.00-10.9); Hematocrit 31.6 VOL% (35.7-47.0); Hemoglobin 9.8 GM/DL (12.0-16.0); Immature Granulocytes % 0.4 %; Immature Granulocytes Absolute 0.03 #; Lymphocytes # 1.8 10*3/uL (1.4-4.0); Lymphocytes % 25.5 % (21.3-54.2); Mean Platelet Volume 11.3 FL (9.6-12.0); Monocytes # 0.7 10*3/uL (0.11-0.8); Monocytes % 9.6 % (1.7-12.7); Neutrophils % 44.9 % (38.7-73.9); Platelet Count 111 T/CUMM (130-400); Red Blood Count 3.29 MC/CUMM (3.8-5.5); Red Cell Distribution Width 13.9 % (9.3-17.3); White Blood Count 7.1 T/CUMM (4-12)
[2022-10-25 06:34] LABS: Calcium 7.4 MG/DL (8.5-10.1); Osmolality,Calculated 303.4 MOS/KG (273-304); Potassium 4.4 MMOL/L (3.5-5.1)
[2022-10-25 06:36] LABS: Albumin 1.9 G/DL (3.4-5.0); Bilirubin,Total 0.4 MG/DL (0.20-1.00); Calcium 7.7 MG/DL (8.5-10.1); Osmolality,Calculated 301.6 MOS/KG (273-304); Potassium 4.3 MMOL/L (3.5-5.1); Total Protein 5.2 G/DL (6.4-8.2)
[2022-10-25] MEDS: INSULIN REGULAR 100 UNIT/ML SUBCUT SCH ×4 (07:48→21:04)
[2022-10-25 08:19] LABS: Anisocytosis Slight; Eosinophils 22 % (0-10); Lymphocytes 22 % (20-55); Macrocytosis Slight; Platelet Estimate Adequate; Total Cells Counted 100
[2022-10-25] MEDS: DOCUSATE SODIUM 100 MG CAPSULE PO SCH ×2 (09:27→21:04)
[2022-10-25] MEDS: SEVELAMER CARBONATE 800 MG TABLET PO SCH ×3 (09:27→16:19)
[2022-10-25] MEDS: PREGABALIN 75 MG CAPSULE PO SCH ×2 (09:27→21:04)
[2022-10-25] MEDS: TORSEMIDE 20 MG TABLET PO SCH (09:28)
[2022-10-25] MEDS: hydrALAZINE 25 MG TABLET PO SCH ×3 (09:28→21:03)
[2022-10-25] MEDS: calcitrioL 0.25 MCG CAPSULE PO SCH (09:28)
[2022-10-25] MEDS: carvediloL 6.25 MG TABLET PO SCH ×2 (09:29→16:19)
[2022-10-25] MEDS: FUROSEMIDE 40 MG/4 ML VIAL IV SCH (09:29)
[2022-10-25] MEDS: MULTIVITAMIN (CENTRUM) TABLET PO SCH (09:29)
[2022-10-25] MEDS: diphenhydrAMINE CAP 25 MG CAPSULE PO PRN (09:29)
[2022-10-25] MEDS: HEPARIN 5,000 UNIT/1 ML VIAL SUBCUT SCH ×2 (09:30→21:04)
[2022-10-25] MEDS: MOMETASONE 220 MCG/PUFF INHALER 14 DOSE INH SCH ×2 (09:53→21:04)
[2022-10-25] MEDS: PANTOPRAZOLE 40 MG TABLET PO SCH (09:54)
[2022-10-25] MEDS: metOLazone 5 MG TABLET PO SCH (13:19)
[2022-10-25] MEDS: FUROSEMIDE 100 MG/10 ML VIAL IV SCH (16:18)
[2022-10-25] MEDS: traMADol 50 MG TABLET PO PRN (21:05)
[2022-10-25] MEDS: MONTELUKAST 10 MG TABLET PO SCH (21:05)
[2022-10-26] MEDS: ALBUTEROL/IPRATROPIUM 3 ML NEB RESP TX SCH ×4 (00:32→19:24)
[2022-10-26 05:32] LABS: Basophils # 0.1 10*3/uL (0.0-0.2); Basophils % 0.9 % (0.0-0.8); Eosinophils # 1.2 10*3/uL (0.0-0.87); Eosinophils % 17.8 % (0.00-10.9); Hematocrit 30.1 VOL% (35.7-47.0); Hemoglobin 9.8 GM/DL (12.0-16.0); Immature Granulocytes % 0.3 %; Immature Granulocytes Absolute 0.02 #; Lymphocytes # 1.4 10*3/uL (1.4-4.0); Lymphocytes % 20.4 % (21.3-54.2); Mean Corpuscular HGB Conc 32.6 GM/DL (32-36); Mean Corpuscular Volume 94.7 FL (87-102); Mean Platelet Volume 11.7 FL (9.6-12.0); Monocytes # 0.6 10*3/uL (0.11-0.8); Monocytes % 9.5 % (1.7-12.7); Neutrophils % 51.1 % (38.7-73.9); Platelet Count 100 T/CUMM (130-400); Red Blood Count 3.18 MC/CUMM (3.8-5.5); Red Cell Distribution Width 13.8 % (9.3-17.3); White Blood Count 6.8 T/CUMM (4-12)
[2022-10-26] MEDS: LEVOTHYROXINE 100 MCG TABLET PO SCH (05:52)
[2022-10-26 05:57] LABS: Alanine Aminotransferase 28 U/L (13-56); Albumin 1.8 G/DL (3.4-5.0); Alkaline Phosphatase 104 U/L (45-117); Aspartate Amino Transferase 27 U/L (0-37); Bilirubin,Total < 0.39 MG/DL (0.20-1.00); Blood Urea Nitrogen 45 MG/DL (7-18); Calcium 7.6 MG/DL (8.5-10.1); Carbon Dioxide 25 MMOL/L (21-32); Chloride 116 MMOL/L (98-107); Glucose 150 MG/DL (74-106); Osmolality,Calculated 304.6 MOS/KG (273-304); Potassium 4.2 MMOL/L (3.5-5.1); Sodium 146 MMOL/L (136-145); Total Protein 5.1 G/DL (6.4-8.2)
[2022-10-26 05:58] LABS: Eosinophils 18 % (0-10); Lymphocytes 12 % (20-55); Platelet Estimate Adequate; Total Cells Counted 100
[2022-10-26 05:59] LABS: Hypochromia Slight
[2022-10-26] MEDS ORDERED: ERGOCALCIFEROL 50,000 UNIT CAPSULE PO SCH (09:00)
[2022-10-26] MEDS: FUROSEMIDE 100 MG/10 ML VIAL IV SCH ×2 (09:25→15:40)
[2022-10-26] MEDS: metOLazone 5 MG TABLET PO SCH (09:26)
[2022-10-26] MEDS: PANTOPRAZOLE 40 MG TABLET PO SCH (09:26)
[2022-10-26] MEDS: HEPARIN 5,000 UNIT/1 ML VIAL SUBCUT SCH ×2 (09:26→21:31)
[2022-10-26] MEDS: DOCUSATE SODIUM 100 MG CAPSULE PO SCH ×2 (09:26→21:33)
[2022-10-26] MEDS: MULTIVITAMIN (CENTRUM) TABLET PO SCH (09:26)
[2022-10-26] MEDS: hydrALAZINE 25 MG TABLET PO SCH ×3 (09:26→21:33)
[2022-10-26] MEDS: calcitrioL 0.25 MCG CAPSULE PO SCH (09:27)
[2022-10-26] MEDS: MOMETASONE 220 MCG/PUFF INHALER 14 DOSE INH SCH ×2 (09:27→21:34)
[2022-10-26] MEDS: SEVELAMER CARBONATE 800 MG TABLET PO SCH ×3 (09:27→17:31)
[2022-10-26] MEDS: PREGABALIN 75 MG CAPSULE PO SCH ×2 (09:27→21:33)
[2022-10-26] MEDS: carvediloL 6.25 MG TABLET PO SCH ×2 (09:27→17:32)
[2022-10-26] MEDS: INSULIN REGULAR 100 UNIT/ML SUBCUT SCH ×4 (09:27→21:32)
[2022-10-26 12:56] LABS: Hepatitis B Surface Ag Quant < 0.10 Index; Hepatitis B Surface Ag Result Non-Reactive (NonReactive)
[2022-10-26 13:45] LABS: Hepatitis C Virus Ab Quant 0.02 Index; Hepatitis C Virus Ab Result Non-Reactive (NonReactive)
[2022-10-26] MEDS ORDERED: methylPREDNISolone SOD SUC 125 MG/2 ML VIAL IV SCH (14:30)
[2022-10-26] MEDS: SODIUM CHLORIDE 0.9% IV SCH ×2 (15:40→21:31)
[2022-10-26] MEDS: METHYLPREDNISOLONE SOD SUC IV SCH ×2 (15:40→21:31)
[2022-10-26] MEDS ORDERED: predniSONE 20 MG TABLET PO SCH (21:00)
[2022-10-26] MEDS: MYCOPHENOLATE MOFETIL 250 MG CAPSULE PO SCH (21:32)
[2022-10-26] MEDS: MONTELUKAST 10 MG TABLET PO SCH (21:32)
[2022-10-26] MEDS: HYDROXYCHLOROQUINE 200 MG TABLET PO SCH (21:33)
[2022-10-26] MEDS: traMADol 50 MG TABLET PO PRN (21:45)
[2022-10-27] MEDS: ALBUTEROL/IPRATROPIUM 3 ML NEB RESP TX SCH ×4 (00:30→19:11)
[2022-10-27] MEDS: SODIUM CHLORIDE 0.9% IV SCH ×4 (03:54→22:05)
[2022-10-27] MEDS: METHYLPREDNISOLONE SOD SUC IV SCH ×4 (03:54→22:05)
[2022-10-27 05:55] LABS: Basophils % 0.2 % (0.0-0.8); Eosinophils % 0.2 % (0.00-10.9); Hematocrit 35.1 VOL% (35.7-47.0); Hemoglobin 11.3 GM/DL (12.0-16.0); Immature Granulocytes % 1.4 %; Immature Granulocytes Absolute 0.09 #; Lymphocytes # 0.6 10*3/uL (1.4-4.0); Lymphocytes % 9.5 % (21.3-54.2); Mean Corpuscular HGB Conc 32.2 GM/DL (32-36); Mean Corpuscular Volume 91.6 FL (87-102); Mean Platelet Volume 11.5 FL (9.6-12.0); Monocytes # 0.1 10*3/uL (0.11-0.8); Monocytes % 0.8 % (1.7-12.7); Neutrophils % 87.9 % (38.7-73.9); Platelet Count 110 T/CUMM (130-400); Red Blood Count 3.83 MC/CUMM (3.8-5.5); Red Cell Distribution Width 13.5 % (9.3-17.3); White Blood Count 6.6 T/CUMM (4-12)
[2022-10-27 06:30] LABS: Albumin 2.3 G/DL (3.4-5.0); Bilirubin,Total 0.4 MG/DL (0.20-1.00); Calcium 8.4 MG/DL (8.5-10.1); Osmolality,Calculated 303.4 MOS/KG (273-304); Potassium 4.4 MMOL/L (3.5-5.1)
[2022-10-27] MEDS: metOLazone 5 MG TABLET PO SCH (08:32)
[2022-10-27] MEDS: DOCUSATE SODIUM 100 MG CAPSULE PO SCH ×2 (08:33→22:02)
[2022-10-27] MEDS: carvediloL 6.25 MG TABLET PO SCH ×2 (08:33→16:38)
[2022-10-27] MEDS: MULTIVITAMIN (CENTRUM) TABLET PO SCH (08:33)
[2022-10-27] MEDS: PREGABALIN 75 MG CAPSULE PO SCH ×2 (08:33→22:01)
[2022-10-27] MEDS: calcitrioL 0.25 MCG CAPSULE PO SCH (08:33)
[2022-10-27] MEDS: MYCOPHENOLATE MOFETIL 250 MG CAPSULE PO SCH (08:33)
[2022-10-27] MEDS: SEVELAMER CARBONATE 800 MG TABLET PO SCH ×3 (08:33→16:39)
[2022-10-27] MEDS: HYDROXYCHLOROQUINE 200 MG TABLET PO SCH ×2 (08:33→22:01)
[2022-10-27] MEDS: hydrALAZINE 25 MG TABLET PO SCH ×3 (08:34→22:02)
[2022-10-27] MEDS: FUROSEMIDE 100 MG/10 ML VIAL IV SCH ×2 (08:34→16:35)
[2022-10-27] MEDS: HEPARIN 5,000 UNIT/1 ML VIAL SUBCUT SCH ×2 (08:37→22:00)
[2022-10-27] MEDS: ACETAMINOPHEN 325 MG TABLET PO PRN ×3 (08:41→22:00)
[2022-10-27] MEDS: PANTOPRAZOLE 40 MG TABLET PO SCH (08:42)
[2022-10-27] MEDS: traMADol 50 MG TABLET PO PRN ×2 (08:42→22:16)
[2022-10-27] MEDS: LEVOTHYROXINE 100 MCG TABLET PO SCH (08:42)
[2022-10-27] MEDS: MOMETASONE 220 MCG/PUFF INHALER 14 DOSE INH SCH ×2 (08:42→22:04)
[2022-10-27] MEDS: INSULIN REGULAR 100 UNIT/ML SUBCUT SCH (09:39)
[2022-10-27] MEDS: ONDANSETRON 4 MG/2 ML VIAL IV PRN ×2 (09:46→12:50)
[2022-10-27] MEDS: INSULIN GLARGINE 100 UNIT/ML SUBCUT SCH (09:48)
[2022-10-27 10:31] LABS: Myeloperoxidase Antibody < 0.2 U
[2022-10-27] MEDS: INSULIN LISPRO 100 UNIT/ML SUBCUT SCH ×5 (12:06→22:00)
[2022-10-27] MEDS ORDERED: GRANISETRON 1 MG/1 ML VIAL IV ONE (13:00)
[2022-10-27] MEDS ORDERED: diphenhydrAMINE 50 MG/1 ML VIAL IV ONE (13:00)
[2022-10-27] MEDS ORDERED: CYCLOPHOSPHAMIDE INJ 500 MG in SODIUM CHLORIDE 0.9% 250 ML IV ONE (14:00)
[2022-10-27] MEDS: MONTELUKAST 10 MG TABLET PO SCH (22:01)
[2022-10-27] MEDS: diphenhydrAMINE CAP 25 MG CAPSULE PO PRN (22:17)
[2022-10-28] MEDS: ALBUTEROL/IPRATROPIUM 3 ML NEB RESP TX SCH ×4 (00:05→19:07)
[2022-10-28] MEDS: METHYLPREDNISOLONE SOD SUC IV SCH ×4 (03:58→21:27)
[2022-10-28] MEDS: SODIUM CHLORIDE 0.9% IV SCH ×4 (03:58→21:27)
[2022-10-28] MEDS: LEVOTHYROXINE 100 MCG TABLET PO SCH (05:35)
[2022-10-28 06:13] LABS: Phosphorous 5.4 MG/DL (2.5-4.9); Uric Acid 8.5 MG/DL (2.6-6.0)
[2022-10-28 06:17] LABS: Calcium 8.1 MG/DL (8.5-10.1); Osmolality,Calculated 302.1 MOS/KG (273-304); Potassium 4.8 MMOL/L (3.5-5.1)
[2022-10-28] MEDS: INSULIN GLARGINE 100 UNIT/ML SUBCUT SCH (08:44)
[2022-10-28] MEDS: INSULIN LISPRO 100 UNIT/ML SUBCUT SCH ×7 (08:44→21:26)
[2022-10-28] MEDS: MULTIVITAMIN (CENTRUM) TABLET PO SCH (08:49)
[2022-10-28] MEDS: PREGABALIN 75 MG CAPSULE PO SCH ×2 (08:49→21:25)
[2022-10-28] MEDS: DOCUSATE SODIUM 100 MG CAPSULE PO SCH ×2 (08:49→21:25)
[2022-10-28] MEDS: SEVELAMER CARBONATE 800 MG TABLET PO SCH ×3 (08:49→16:45)
[2022-10-28] MEDS: carvediloL 6.25 MG TABLET PO SCH ×2 (08:49→16:45)
[2022-10-28] MEDS: HYDROXYCHLOROQUINE 200 MG TABLET PO SCH ×2 (08:49→21:25)
[2022-10-28] MEDS: diphenhydrAMINE CAP 25 MG CAPSULE PO PRN ×2 (08:49→21:25)
[2022-10-28] MEDS: hydrALAZINE 25 MG TABLET PO SCH ×3 (08:50→21:26)
[2022-10-28] MEDS: metOLazone 5 MG TABLET PO SCH (08:50)
[2022-10-28] MEDS: calcitrioL 0.25 MCG CAPSULE PO SCH (08:50)
[2022-10-28] MEDS: PANTOPRAZOLE 40 MG TABLET PO SCH (08:50)
[2022-10-28] MEDS: FUROSEMIDE 100 MG/10 ML VIAL IV SCH ×2 (08:55→15:34)
[2022-10-28] MEDS: MOMETASONE 220 MCG/PUFF INHALER 14 DOSE INH SCH ×2 (08:57→21:26)
[2022-10-28] MEDS: HEPARIN 5,000 UNIT/1 ML VIAL SUBCUT SCH ×2 (09:00→21:24)
[2022-10-28] MEDS: ACETAMINOPHEN 325 MG TABLET PO PRN (11:10)
[2022-10-28] MEDS ORDERED: INSULIN GLARGINE 100 UNIT/ML SUBCUT ONE (11:30)
[2022-10-28] MEDS: MONTELUKAST 10 MG TABLET PO SCH (21:25)
[2022-10-28] MEDS: traMADol 50 MG TABLET PO PRN (21:25)
[2022-10-29] MEDS: ALBUTEROL/IPRATROPIUM 3 ML NEB RESP TX SCH ×4 (00:06→19:55)
[2022-10-29] MEDS: SODIUM CHLORIDE 0.9% IV SCH ×2 (03:02→10:10)
[2022-10-29] MEDS: METHYLPREDNISOLONE SOD SUC IV SCH ×2 (03:02→10:10)
[2022-10-29 05:25] LABS: Calcium 8.1 MG/DL (8.5-10.1); Osmolality,Calculated 302.4 MOS/KG (273-304)
[2022-10-29] MEDS: LEVOTHYROXINE 100 MCG TABLET PO SCH (05:54)
[2022-10-29] MEDS: INSULIN LISPRO 100 UNIT/ML SUBCUT SCH ×7 (08:32→22:06)
[2022-10-29] MEDS: MOMETASONE 220 MCG/PUFF INHALER 14 DOSE INH SCH ×2 (09:59→22:06)
[2022-10-29] MEDS: PREGABALIN 75 MG CAPSULE PO SCH ×2 (10:00→22:06)
[2022-10-29] MEDS: metOLazone 5 MG TABLET PO SCH (10:00)
[2022-10-29] MEDS: carvediloL 6.25 MG TABLET PO SCH (10:00)
[2022-10-29] MEDS: SEVELAMER CARBONATE 800 MG TABLET PO SCH ×3 (10:00→17:08)
[2022-10-29] MEDS: PANTOPRAZOLE 40 MG TABLET PO SCH (10:00)
[2022-10-29] MEDS: HYDROXYCHLOROQUINE 200 MG TABLET PO SCH ×2 (10:00→22:05)
[2022-10-29] MEDS: DOCUSATE SODIUM 100 MG CAPSULE PO SCH ×2 (10:00→22:04)
[2022-10-29] MEDS: hydrALAZINE 25 MG TABLET PO SCH (10:00)
[2022-10-29] MEDS: MULTIVITAMIN (CENTRUM) TABLET PO SCH (10:00)
[2022-10-29] MEDS: calcitrioL 0.25 MCG CAPSULE PO SCH (10:00)
[2022-10-29] MEDS: HEPARIN 5,000 UNIT/1 ML VIAL SUBCUT SCH ×2 (10:01→22:06)
[2022-10-29] MEDS: INSULIN GLARGINE 100 UNIT/ML SUBCUT SCH (10:13)
[2022-10-29] MEDS: FUROSEMIDE 100 MG/10 ML VIAL IV SCH ×2 (10:16→17:16)
[2022-10-29] MEDS: carvediloL 12.5 MG TABLET PO SCH (17:04)
[2022-10-29] MEDS: diphenhydrAMINE CAP 25 MG CAPSULE PO PRN (22:04)
[2022-10-29] MEDS: MONTELUKAST 10 MG TABLET PO SCH (22:05)
[2022-10-29] MEDS: predniSONE 10 MG TABLET PO SCH (22:05)
[2022-10-29] MEDS: traMADol 50 MG TABLET PO PRN (22:05)
[2022-10-30] MEDS: ALBUTEROL/IPRATROPIUM 3 ML NEB RESP TX SCH ×2 (01:00→07:08)
[2022-10-30 05:29] LABS: Calcium 7.7 MG/DL (8.5-10.1); Osmolality,Calculated 299.4 MOS/KG (273-304); Potassium 3.7 MMOL/L (3.5-5.1)
[2022-10-30] MEDS: LEVOTHYROXINE 100 MCG TABLET PO SCH (06:09)
[2022-10-30 09:06] LABS: Creatinine Clearance Urine 21.83 ML/MIN (70-115)
[2022-10-30 09:09] LABS: Total Protein 24 Hr Ur Result 32430 MG/24HR (0-149.1); Total Volume,Urine 4700 ML (400-2000)
[2022-10-30] MEDS: predniSONE 10 MG TABLET PO SCH (10:44)
[2022-10-30] MEDS: calcitrioL 0.25 MCG CAPSULE PO SCH (10:45)
[2022-10-30] MEDS: PANTOPRAZOLE 40 MG TABLET PO SCH (10:45)
[2022-10-30] MEDS: PREGABALIN 75 MG CAPSULE PO SCH (10:45)
[2022-10-30] MEDS: ACETAMINOPHEN 325 MG TABLET PO PRN (10:45)
[2022-10-30] MEDS: DOCUSATE SODIUM 100 MG CAPSULE PO SCH (10:45)
[2022-10-30] MEDS: MULTIVITAMIN (CENTRUM) TABLET PO SCH (10:46)
[2022-10-30] MEDS: SEVELAMER CARBONATE 800 MG TABLET PO SCH ×2 (10:46→12:55)
[2022-10-30] MEDS: HEPARIN 5,000 UNIT/1 ML VIAL SUBCUT SCH (10:46)
[2022-10-30] MEDS: INSULIN GLARGINE 100 UNIT/ML SUBCUT SCH (10:46)
[2022-10-30] MEDS: metOLazone 5 MG TABLET PO SCH (10:46)
[2022-10-30] MEDS: HYDROXYCHLOROQUINE 200 MG TABLET PO SCH (10:46)
[2022-10-30] MEDS: carvediloL 12.5 MG TABLET PO SCH (10:46)
[2022-10-30] MEDS: INSULIN LISPRO 100 UNIT/ML SUBCUT SCH ×4 (10:47→12:56)
[2022-10-30] MEDS: FUROSEMIDE 100 MG/10 ML VIAL IV SCH (10:47)
[2022-10-30] MEDS: MOMETASONE 220 MCG/PUFF INHALER 14 DOSE INH SCH (10:48)
[2022-10-30 13:25] VITALS: BP 147/99
== END 2022-10-30 13:41 | disposition home health service (06) | DRG 546 ==
LOC: N.2E → SUATTDRO 19:02 → N.2E 19:25 → SUATTDRO 10-23 12:22
PROVIDERS: ADMIT Internal Medicine; ATTEND Emergency Medicine